=== PATIENT | female | born 1985 | race Caucasian/White ===

== ENCOUNTER 2017-06-25 21:36 | Emergency (ER) | payer MEDICAID ==
[2017-06-26] MEDS: ACETAMINOPHEN 325 MG TAB PO (02:40)
[2017-06-26] MEDS: METOCLOPRAMIDE 10 MG INJ IV (02:40)
[2017-06-26] MEDS: SOD CHLORIDE 0.9% 1,000 ML IV (02:41)
[2017-06-26 02:44] LABS: ADD MAN DIFF? NO
[2017-06-26 02:51] LABS: BASOPHILS % 0.2 % (0.0-2.0); EOSINOPHILS % 0.5 % (0.0-7.0); HEMATOCRIT 43.1 % (37.0-47.0); HEMOGLOBIN 14.6 g/dl (12.0-16.0); LYMPHOCYTES # 2.8 10^3/ul (0.8-2.9); LYMPHOCYTES % 44.3 % (15.0-51.0); MEAN CORPUSCULAR HEMOGLOBIN 29.6 pg (29.0-33.0); MEAN CORPUSCULAR HGB CONC 33.9 g/dl (32.0-37.0); MEAN CORPUSCULAR VOLUME 87.2 fl (82.0-101.0); MEAN PLATELET VOLUME 10.1 fl (7.4-10.4); MONOCYTE # 0.4 10^3/ul (0.3-0.9); MONOCYTES % 6.2 % (0.0-11.0); NEUTROPHIL # 3.1 10^3/ul (1.6-7.5); NEUTROPHILS % 48.8 % (39.0-77.0); PLATELET COUNT 181 10^3/UL (140-415); RED BLOOD COUNT 4.94 10^6/ul (4.20-5.40); RED CELL DISTRIBUTION WIDTH 14.6 % (11.5-14.5)
[2017-06-26 02:51] LABS: WHITE BLOOD COUNT 6.3 10^3/ul (4.8-10.8)
[2017-06-26 03:08] LABS: ADD UMIC YES; UR ASCORBIC ACID NEGATIVE (NEGATIVE); UR BILIRUBIN (Dip) NEGATIVE (NEGATIVE); UR BLOOD (Dip) NEGATIVE (NEGATIVE); UR CLARITY SLIGHTLY CLOUDY (CLEAR); UR COLOR AMBER (YELLOW); UR GLUCOSE (Dip) NEGATIVE (NEGATIVE); UR KETONES (Dip) 2+ mg/dL (NEGATIVE); UR LEUKOCYTE ESTERASE (Dip) NEGATIVE Leu/ul (NEGATIVE); UR MUCUS MANY /HPF (NONE SEEN); UR NITRITE (Dip) NEGATIVE (NEGATIVE); UR RBC 1 /HPF (0-5); UR SPECIFIC GRAVITY (Dip) 1.028 (1.003-1.030); UR SQUAMOUS EPITHELIAL CELL FEW /HPF (FEW); UR TOTAL PROTEIN (Dip) 1+ mg/dl (NEGATIVE); UR UROBILINOGEN (Dip) 1+ mg/dL (NEGATIVE); UR WBC 1 /HPF (0-5)
[2017-06-26 03:10] LABS: INR 0.82; PROTIME 11.4 Sec (11.9-14.9); PT RATIO 0.9
[2017-06-26 03:11] LABS: PARTIAL THROMBOPLASTIN TIME 32.6 Sec (25.0-35.0)
[2017-06-26 03:12] LABS: ALANINE AMINOTRANSFERASE 54 IU/L (13-69); ALBUMIN 4.3 g/dl (3.3-4.9); ALBUMIN/GLOBULIN RATIO 1.13; ALKALINE PHOSPHATASE 65 IU/L (42-121); ANION GAP 18 (8-16); ASPARTATE AMINO TRANSFERASE 49 IU/L (15-46); BILIRUBIN,INDIRECT 0.5 mg/dl (0-1.1); BILIRUBIN,TOTAL 0.5 mg/dl (0.2-1.3); BLOOD UREA NITROGEN 8 mg/dl (7-20); CALCIUM 9.1 mg/dl (8.4-10.2); CARBON DIOXIDE 26 mmol/L (21-31); CHLORIDE 103 mmol/L (97-110); GLUCOSE 87 mg/dl (70-220); POTASSIUM 3.6 mmol/L (3.5-5.1); SODIUM 143 mmol/L (135-144); TOTAL PROTEIN 8.1 g/dl (6.1-8.1)
== END 2017-06-26 04:12 | disposition home or self-care (01) ==
LOC: FTE 21:36
DX: O21.9 Vomiting of pregnancy, unspecified (principal); R10.2 Pelvic and perineal pain; Z3A.16 16 weeks gestation of pregnancy
CPT/HCPCS: 36415; 76705; 76801; 80053; 81001; 84702; 85025; 85610; 85730; 86900; 86901; 87086; 96374; 99285-25

== ENCOUNTER 2017-12-08 13:43 | Inpatient (IN) | payer MEDICAID ==
[2017-12-08] MEDS: LACTATED RINGER'S 1,000 ML IV* ×2 (19:24→23:47)
[2017-12-08] MEDS ORDERED: CARBOPROST 250 MCG INJ IM (19:30)
[2017-12-08] MEDS ORDERED: OXYTOCIN 30 UNITS/LR 500 ML IV ×2 (19:30)
[2017-12-08] MEDS ORDERED: METHYLERGONOVINE 0.2 MG INJ IM (19:30)
[2017-12-08] MEDS ORDERED: BUTORPHANOL 2 MG INJ IV (19:30)
[2017-12-08] MEDS ORDERED: LIDOCAINE 1% (MPF) 30 ML INJ INJ (19:30)
[2017-12-08] MEDS ORDERED: MISOPROSTOL 200 MCG TAB PR (19:30)
[2017-12-08 19:43] LABS: ADD MAN DIFF? NO
[2017-12-08 19:44] LABS: BASOPHILS % 0.3 % (0.0-2.0); EOSINOPHILS % 0.5 % (0.0-7.0); HEMATOCRIT 37.5 % (37.0-47.0); HEMOGLOBIN 12.1 g/dl (12.0-16.0); LYMPHOCYTES # 1.9 10^3/ul (0.8-2.9); LYMPHOCYTES % 26.3 % (15.0-51.0); MEAN CORPUSCULAR HEMOGLOBIN 25.3 pg (29.0-33.0); MEAN CORPUSCULAR HGB CONC 32.3 g/dl (32.0-37.0); MEAN CORPUSCULAR VOLUME 78.3 fl (82.0-101.0); MONOCYTE # 0.5 10^3/ul (0.3-0.9); MONOCYTES % 6.4 % (0.0-11.0); NEUTROPHIL # 4.9 10^3/ul (1.6-7.5); NEUTROPHILS % 66.4 % (39.0-77.0); PLATELET COUNT 189 10^3/UL (140-415); RED BLOOD COUNT 4.79 10^6/ul (4.20-5.40); RED CELL DISTRIBUTION WIDTH 16.6 % (11.5-14.5)
[2017-12-08 19:44] LABS: WHITE BLOOD COUNT 7.4 10^3/ul (4.8-10.8)
[2017-12-08 20:14] LABS: INR 0.95; PARTIAL THROMBOPLASTIN TIME 28.6 Sec (25.0-35.0); PROTIME 12.8 Sec (11.9-14.9)
[2017-12-08 20:33] LABS: HEPATITIS B SURFACE ANTIGEN NEGATIVE (NEGATIVE)
[2017-12-08] MEDS: OXYTOCIN 30 UNITS/LR 500 ML IV (21:00)
[2017-12-08 21:37] LABS: RAPID PLASMA REAGIN NONREACTIVE (NR)
[2017-12-08] MEDS ORDERED: FENTAnyl 2MCG/ML-ROPIV 0.2% 100 ML (23:57)
[2017-12-09] MEDS: LACTATED RINGER'S 1,000 ML IV* ×2 (03:34→08:09)
[2017-12-09] MEDS: OXYTOCIN 30 UNITS/LR 500 ML IV (04:20)
[2017-12-09] MEDS ORDERED: DEXTROSE 5%-LR 1,000 ML IV (04:21)
[2017-12-09] MEDS: IBUPROFEN 600 MG TAB PO ×4 (04:29→17:36)
[2017-12-09] MEDS ORDERED: ONDANSETRON 4 MG INJ IV (04:30)
[2017-12-09] MEDS ORDERED: DIBUCAINE 1% 30 GM OINT PR (04:30)
[2017-12-09] MEDS ORDERED: LANOLIN 7 GM TUBE TOP (04:30)
[2017-12-09] MEDS ORDERED: METHYLERGONOVINE 0.2 MG INJ IM (04:30)
[2017-12-09] MEDS ORDERED: WITCH HAZEL/GLYCERIN PAD PR (04:30)
[2017-12-09] MEDS ORDERED: CARBOPROST 250 MCG INJ IM (04:30)
[2017-12-09] MEDS ORDERED: SENNA/DOCUSATE NA (8.6MG/50MG) TAB PO (04:30)
[2017-12-09] MEDS ORDERED: OXYTOCIN 30 UNITS/LR 500 ML IV (04:30)
[2017-12-09] MEDS ORDERED: DIPHENHYDRAMINE 50 MG INJ IV (04:30)
[2017-12-09] MEDS ORDERED: MISOPROSTOL 200 MCG TAB PR (04:30)
[2017-12-09] MEDS ORDERED: ZOLPIDEM 5 MG TAB PO (04:30)
[2017-12-09] MEDS ORDERED: ACETAMINOPHEN 325 MG TAB PO (04:30)
[2017-12-09] MEDS ORDERED: BENZOCAINE 20% 56 ML SPRAY TOP (04:30)
[2017-12-09] MEDS: OXYCODONE/ASPIRIN (4.88/325) TAB PO (15:34)
[2017-12-10] MEDS: IBUPROFEN 600 MG TAB PO ×3 (00:08→12:00)
[2017-12-10] MEDS: OXYCODONE/ASPIRIN (4.88/325) TAB PO (08:39)
[2017-12-10 10:27] LABS: ADD MAN DIFF? NO
[2017-12-10 10:36] LABS: BASOPHILS % 0.3 % (0.0-2.0); EOSINOPHILS # 0.1 10^3/ul (0.0-0.5); HEMATOCRIT 35.3 % (37.0-47.0); HEMOGLOBIN 11.2 g/dl (12.0-16.0); LYMPHOCYTES # 2.2 10^3/ul (0.8-2.9); LYMPHOCYTES % 24.9 % (15.0-51.0); MEAN CORPUSCULAR HEMOGLOBIN 25.1 pg (29.0-33.0); MEAN CORPUSCULAR HGB CONC 31.7 g/dl (32.0-37.0); MEAN PLATELET VOLUME 10.8 fl (7.4-10.4); MONOCYTE # 0.6 10^3/ul (0.3-0.9); MONOCYTES % 6.8 % (0.0-11.0); NEUTROPHIL # 5.8 10^3/ul (1.6-7.5); NEUTROPHILS % 66.5 % (39.0-77.0); PLATELET COUNT 166 10^3/UL (140-415); RED BLOOD COUNT 4.47 10^6/ul (4.20-5.40); RED CELL DISTRIBUTION WIDTH 17.2 % (11.5-14.5)
[2017-12-10 10:36] LABS: WHITE BLOOD COUNT 8.7 10^3/ul (4.8-10.8)
[2017-12-11] MEDS ORDERED: MEASLES,MUMPS,RUBELLA VACCINE INJ SC* (09:00)
[2017-12-11] MEDS ORDERED: DIPHTH/TET/ACEL PERTUSS (ADULT) 0.5 ML VIAL IM* (09:00)
== END 2017-12-10 16:50 | disposition home or self-care (01) | DRG 775 ==
LOC: OBT 13:43 → L-D 13:43 → PP1 12-09 14:11 → OBT 17:20 → L-D 17:20
PROVIDERS: Obstetrics & Gynecology
PROC: 10E0XZZ Delivery of Products of Conception, External Approach (ICD-10-PCS; principal; 2017-12-09)
PROC: 3E033VJ Introduction of Other Hormone into Peripheral Vein, Percutaneous Approach (ICD-10-PCS; 2017-12-09)
DX: O69.81X0 Labor and delivery complicated by cord around neck, without compression, not applicable or unspecified (principal); Z3A.39 39 weeks gestation of pregnancy; Z37.0 Single live birth
CPT/HCPCS: 62319; 76815; 76818; 85025; 85610; 85730; 86592; 86900; 86901; 87340